=== PATIENT | female | born 1990 | race Caucasian/White ===

== ENCOUNTER 2017-10-17 04:09 | Emergency (ER) | payer BC ==
[~2017-10-17] VITALS: Ht 165.1 cm; Wt 109.0 kg
[~2017-10-17 04:09] MED LIST: BCPILLS PO; CIPR1TAB11 PO; ESCI1TAB10 PO
[2017-10-17 04:12] VITALS: TEMP 36.8; Ht 165.1 cm; Wt 109.0 kg
[2017-10-17] MEDS: OXYCODONE/ACETAMINOPHEN 5-325 TAB PO STA ×2 (04:34→06:01)
[2017-10-17] MEDS ORDERED: KETOROLAC TROMETHAMINE 60 MG/2 ML VIAL IM STA (04:34)
[2017-10-17] MEDS ORDERED: ESCI1TAB9 PO (04:38)
[2017-10-17] MEDS ORDERED: PRED50TA PO (05:54)
[2017-10-17] MEDS ORDERED: OXYC1TAB3 PO (05:54)
[2017-10-17] MEDS ORDERED: CYCL10TA6 PO (05:54)
[2017-10-17 05:56] VITALS: BP 127/71; PULSE 76; O2SAT 98
[2017-10-17] MEDS ORDERED: OXYCODONE IR HOME PACK PO ONE (06:00)
--- NOTE | 2017-10-17 06:35 | DIAGNOSTIC IMAGING REPORT ---
L-SPINE MIN 4 VIEWS ROUTINE CLINICAL HISTORY: Low back pain COMPARISON: None FINDINGS: Alignment of the lumbar spine is anatomic. Vertebral body heights are maintained. No fracture or suspicious osseous lesion is present. There is mild disc space narrowing at L5-S1. IMPRESSION: 1. No acute lumbar spine fracture or subluxation. 2. Minimal disc space narrowing at L5-S1. Electronically signed by: Jmaes Skelton M.D. 10/17/2017 6:33 AM Dictated Date/Time: 10/17/2017 6:32 AM
--- NOTE | 2017-10-17 08:23 | EMERGENCY ROOM VISIT NOTE ---
ED Visit Note First contact with patient: 04:17 CHIEF COMPLAINT: Low back pain HISTORY OF PRESENT ILLNESS: This 26-year-old female patient presents to the emergency department complaining of pain in the low back which began 3 months ago. The pain was gradual in onset, is now constant and worse with movement. She was having difficulty sleeping tonight and elected to come to the ER for evaluation. The patient notes the pain as dull and a 8.5/10. The patient has taken [id number] analgesics without significant relief of the pain. The patient denies any loss of control of their bowel or bladder functions. There has been no leg numbness or weakness, and no change in sensation. She will occasionally have pain that shoots down the right leg. No nausea or vomiting or abdominal pain. No chest pain or shortness of breath. The patient has not had prior back injuries. No dysuria or increased urinary frequency. REVIEW OF SYSTEMS: A review of systems was performed with positives and pertinent negatives listed in the history of present illness. All other systems were reviewed and are negative. ALLERGIES: Macrobid, contrast MEDICATIONS: See EMR PMH: No chronic medical disease SOCIAL HISTORY: Lives locally with [facility] PHYSICAL EXAM: VITALS: Vitals are noted on the nurse's note and reviewed by myself. Vital signs stable. GENERAL: White female, in no acute distress, nondiaphoretic, well-developed well -nourished. SKIN: The skin was without rashes, erythema, edema, or bruising. Capillary refill less than 2 seconds. NECK: Supple without nuchal rigidity. No cervical spine tenderness. No paraspinous muscle tenderness. HEART: Regular rate and rhythm without murmurs gallops or rubs. LUNGS: Clear to auscultation bilaterally without wheezes, rales or rhonchi. ABDOMEN: Positive bowel sounds x 4. Normal tympanic percussion. Soft, nontender, without masses or organomegaly. Aguilar sign negative. MUSCULOSKELETAL: No muscle atrophy, erythema, or edema noted of the back. There is mild tenderness over the lumbar spinous processes. There is no tenderness over the paraspinous muscles. There is no tenderness over the thoracic spine or paraspinous muscles. There are no muscle spasms present. The patient is slow to move around with maximum tenderness with flexion. Negative straight leg raise test. NEURO: Patient was alert and oriented to person place and time. Normal sensation to light and sharp touch. Deep tendon reflexes 2+ in the lower extremities. Dorsalis pedis pulse 2+ bilaterally. Strength 5/5 and equal in the bilateral lower extremities. L-SPINE MIN 4 VIEWS ROUTINE CLINICAL HISTORY: Low back pain COMPARISON: None FINDINGS: Alignment of the lumbar spine is anatomic. Vertebral body heights are maintained. No fracture or suspicious osseous lesion is present. There is mild disc space narrowing at L5-S1. IMPRESSION: 1. No acute lumbar spine fracture or subluxation. 2. Minimal disc space narrowing at L5-S1. EMERGENCY DEPARTMENT COURSE: Physical exam and history were performed. Nursing notes and EMR were reviewed. The patient appears to have low back pain off and on for the past several months. She does not appear toxic on exam or with signs of cauda equina. The patient was given 60 mg IM Toradol. She was offered oxycodone, however she would like to drive home if possible, and declined this. X-ray was obtained and does not show acute fracture or dislocation per my radiology's interpretation. I discussed options of care with the patient and will give her a course of oxycodone, prednisone, and Flexeril. The patient will need to follow with her primary care physician for further care management. She was pleased with this plan and voiced understanding. She was otherwise invited back to the ER with any new, worsening , or concerning symptoms. Current/Historical Medications Scheduled Control Pills ( Control Pills), 1 TAB PO DAILY Cyclobenzaprine Hcl (Flexeril), 10 MG PO TID Escitalopram Oxalate (Lexapro), 10 MG PO DAILY Oxycodone Immediate Rel Tab (Roxicodone Ir), 5 MG PO Q6H Prednisone (Prednisone), 50 MG PO DAILY Allergies Coded Allergies: Iodinated Diagnostic Agents (Verified Allergy, Unknown, HIVES, 10/17/17) Nickel (Verified Allergy, Unknown, HIVES, 10/17/17) Nitrofurantoin (Verified Allergy, Unknown, RASH, 10/17/17) Vital Signs Date Time Temp Pulse Resp B/P (MAP) Pulse Ox O2 Delivery O2 Flow Rate FiO2 10/17/17 05:56 76 16 127/71 98 Room Air 10/17/17 04:12 36.8 94 18 127/78 96 Room Air Medications Administered Medications (Trade) Dose Ordered Sig/Janes Route Start Time Stop Time Status Last Admin Dose Admin Ketorolac Tromethamine (Toradol Inj) 60 mg NOW STAT IM 10/17/17 04:34 10/17/17 04:36 DC 10/17/17 04:42 60 MG Oxycodone HCl (Roxicodone Immediate Rel 5MG Home Pack) 1 homepack UD ONCE PO 10/17/17 06:00 10/17/17 06:01 DC 10/17/17 06:01 1 HOMEPACK Departure Information Impression Primary Impression: Low back pain with sciatica Dispostion Home / Self-Care Condition GOOD Prescriptions Prednisone (Prednisone) 50 Mg Tab 50 MG PO DAILY for 4 Days, #4 TAB Prov: Pasquale Diallo PA-C 10/17/17 Cyclobenzaprine Hcl (FLEXERIL) 10 Mg Tab 10 MG PO TID for 5 Days, #15 TAB Prov: Pasquale Diallo PA-C 10/17/17 Oxycodone Immediate Rel Tab (ROXICODONE IR) 5 Mg Tab 5 MG PO Q6H for Pain for 3 Days, #12 TAB Prov: Pasquale Diallo PA-C 10/17/17 Forms HOME CARE DOCUMENTATION FORM, IMPORTANT VISIT INFORMATION Patient Instructions [facility] Additional Instructions You were seen and evaluated today on an emergency basis only. This is not a substitute for, or an effort to provide, complete comprehensive medical care. It is not possible to recognize and treat all injuries or illnesses in a single emergency department visit. For this reason it is recommended that you followup with your primary care physician this week for ongoing care and evaluation. For baseline pain relief you may alternate ibuprofen and acetaminophen every 4 hours for pain control. Take 600 mg ibuprofen (Advil) and then 4 hours later take 1000 mg acetaminophen (Tylenol). Do not take more than 3000 mg acetaminophen in a single day. Oxycodone (OxyIR) 5mg: Take ONE pill every SIX hours for breakthrough pain. Avoid alcohol, operating machinery or dangerous equipment, working on ladders or roofs, DRIVING, or situations where being under the influence may be dangerous. It is recommended to use an nofa-qpy-oopwdux stool softener such as Colace, 100mg twice daily while taking this medication to avoid constipation. Flexeril 1 tablet up to 3 times a day as needed for muscle spasms. No driving, working, or alcohol use with Flexeril. Take prednisone daily for the next 4 days You are welcome to return to the emergency department anytime with new, worsening, or concerning symptoms.
== END 2017-10-17 06:04 | disposition home or self-care (01) ==
LOC: C.EDB 04:10
DX: M54.41 Lumbago with sciatica, right side (principal); Z88.1 Allergy status to other antibiotic agents; Z91.041 Radiographic dye allergy status; Z91.048 Other nonmedicinal substance allergy status; Z79.899 Other long term (current) drug therapy; Z79.3 Long term (current) use of hormonal contraceptives